=== PATIENT | female | born 1965 | race Caucasian/White ===

== ENCOUNTER 2016-10-12 22:21 | Emergency (ER) | payer OTHER ==
[~2016-10-12] VITALS: Ht 162.6 cm; Wt 47.7 kg
[~2016-10-12 22:21] MED LIST: AZITHROMYCIN250 MG PO; NOHOMEMEDS; OMEPRAZOLE20 MG PO; THIAMINE HCL100 MG PO; TYLENOL WITH C1 EACH PO; ZANTAC150 MG PO; ZOFRAN ODT4 MG PO
[2016-10-12 23:40] LABS: MCH 36.6 PG (29.0-34.0); MCHC 35.9 G/DL (30.0-36.0); MCV 102.1 FL (83-99); MEAN PLAT.VOLUME 10.8 uM^3 (9.5-12.4); PLATELET COUNT 53 K/uL (156-360); RBC DIS.WIDTH-CV 13.1 % (11.8-14.6); RBC DIS.WIDTH-SD 48.9 % (39-53); RED BLOOD COUNT 3.33 M/uL (3.80-5.20); WHITE BLOOD COUNT 2.6 K/uL (4.1-10.2)
[2016-10-12 23:42] LABS: CARBON DIOXIDE (BICARBONATE) 23.8 MEQ/L (20-31)
[2016-10-12 23:55] LABS: CHLORIDE 101 mEq/L (99-109); POTASSIUM 3.6 mEq/L (3.7-5.4); SODIUM 138 mEq/L (136-147)
[2016-10-12 23:57] LABS: GLUCOSE 59 mg/dL (70-99)
[2016-10-12 23:58] LABS: ANION GAP 17 MEQ/L (2-14)
[2016-10-12 23:59] LABS: TOTAL BILIRUBIN 1.4 mg/dL (0.0-1.0)
[2016-10-13] LABS: SERUM ETHYL ALCOHOL 262 mg/dL
[2016-10-13 00:01] LABS: ALKALINE PHOSPHATASE 92 IU/L (3-129); GFR ESTIMATE (CALCULATED) > 59 mL/min/
[2016-10-13 00:02] LABS: UREA NITROGEN (BUN) 5 mg/dL (9-23)
[2016-10-13 00:04] LABS: LIPASE 107 U/L (1.0-51.0)
[2016-10-13 00:10] LABS: TROP-I INTERPRETATION NEGATIVE; TROPONIN-I < 0.01 ng/mL (0.0-0.30)
[2016-10-13 00:11] LABS: QUANTITATIVE HCG < 4.0 MIU/ML
[2016-10-13 01:13] LABS: ADD MIUA? YES; BILIRUBIN NEGATIVE; BLOOD SMALL; COLOR YELLOW ((YELLOW)); GLUCOSE (STRIP) NEGATIVE; KETONES 20; LEUKOCYTES SMALL; NITRITE POSITIVE; PROTEIN (STRIP) NEGATIVE; SPECIFIC GRAVITY 1.006 (1.000-1.030); UROBILINOGEN 0.2 MG/DL (0.2-1.0)
[2016-10-13 01:16] LABS: BACTERIA RARE /HPF; EPITHELIAL CELLS RARE /HPF; MUCUS TRACE /LPF; RED BLOOD CELLS 0-5 /HPF (0-5); UCUL ADDED? NO; WHITE BLOOD CELLS 0-5 /HPF (0-5)
[2016-10-13 01:21] LABS: AMPHETAMINE NEGATIVE (500 ng/mL); BARBITURATES NEGATIVE (200 ng/mL); BENZODIAZEPINES NEGATIVE (150 ng/mL); COCAINE NEGATIVE (150 ng/mL); INTERNAL CONTROLS VALID? YES; METHADONE NEGATIVE (200 ng/mL); METHAMPHETAMINE NEGATIVE (500 ng/mL); OPIATES (MORPHINE) NEGATIVE (100 ng/mL); OXYCODONE NEGATIVE (100 ng/mL); PHENCYCLIDINE NEGATIVE (25 ng/mL); PROPOXYPHENE NEGATIVE (300 ng/mL); THC CANNABINOIDS NEGATIVE (50 ng/mL); TRICYCLIC ANTIDEPRESSANTS NEGATIVE (300 ng/mL)
[2016-10-13] MEDS ORDERED: THIAMINE HCL100 MG PO (01:49)
[2016-10-13] MEDS ORDERED: MACRODANTIN100 MG PO (01:49)
[2016-10-13] MEDS ORDERED: LIBRIUM25 MG PO (01:49)
[2016-10-13 03:13] VITALS: BP 118/83
== END 2016-10-13 03:20 | disposition home or self-care (01) ==
LOC: EME 22:21
PROVIDERS: Emergency Medicine
DX: F10.229 Alcohol dependence with intoxication, unspecified (principal); N30.01 Acute cystitis with hematuria; R79.89 Other specified abnormal findings of blood chemistry; D72.819 Decreased white blood cell count, unspecified; D69.6 Thrombocytopenia, unspecified; R06.00 Dyspnea, unspecified; S00.11XA Contusion of right eyelid and periocular area, initial encounter; S80.01XA Contusion of right knee, initial encounter; S80.02XA Contusion of left knee, initial encounter; W19.XXXA Unspecified fall, initial encounter; Y90.8 Blood alcohol level of 240 mg/100 ml or more; F17.200 Nicotine dependence, unspecified, uncomplicated
CPT/HCPCS: 70450; 71010; 80053; 81003; 82140; 82803; 83690; 84484; 84702; 85027; 93005; 99281; 99284; G0480; J2060; J7030

== ENCOUNTER 2016-10-16 23:55 | Emergency (ER) | payer OTHER ==
[~2016-10-16] VITALS: Ht 162.6 cm; Wt 60.2 kg
[~2016-10-16 23:55] MED LIST changes: +LIBRIUM25 MG PO; +MACRODANTIN100 MG PO
[2016-10-17 01:29] LABS: EOSINOPHIL (%) 2.7 % (0-5); EOSINOPHIL COUNT 0.1 K/uL (0-0.3); HEMATOCRIT 36.6 % (36.0-46.0); INSTRUMENT ABS NEUTROPHIL CT 0.9 K/uL; LYMPHOCYTE COUNT 1.4 K/uL (1.0-2.8); MCH 36.3 PG (29.0-34.0); MCV 103.7 FL (83-99); MEAN PLAT.VOLUME 11.8 uM^3 (9.5-12.4); MONOCYTE COUNT 0.2 K/uL (0-0.8); NEUTROPHIL (%) 34.9 % (45-76); NEUTROPHIL COUNT 0.9 K/uL (1.8-6.4); PLATELET COUNT 56 K/uL (156-360); RBC DIS.WIDTH-SD 49.7 % (39-53); RED BLOOD COUNT 3.53 M/uL (3.80-5.20); WHITE BLOOD COUNT 2.6 K/uL (4.1-10.2)
[2016-10-17 01:39] LABS: CHLORIDE 103 mEq/L (99-109); POTASSIUM 3.2 mEq/L (3.7-5.4); SODIUM 143 mEq/L (136-147)
[2016-10-17 01:40] LABS: MAGNESIUM 1.7 mg/dL (1.3-2.7)
[2016-10-17 01:42] LABS: GLUCOSE 93 mg/dL (70-99)
[2016-10-17 01:43] LABS: ANION GAP 13 MEQ/L (2-14); D-DIMER ELISA 0.95 mg/L FEU (< 0.57); INTER. NORMALIZED RATIO 1.1; PROTHROMBIN TIME 11.5 (9.2-11.2); PTT 27.9 (25-32)
[2016-10-17 01:45] LABS: ALKALINE PHOSPHATASE 100 IU/L (3-129); SERUM ETHYL ALCOHOL 243 mg/dL; TOTAL BILIRUBIN 1.1 mg/dL (0.0-1.0)
[2016-10-17 01:46] LABS: GFR ESTIMATE (CALCULATED) > 59 mL/min/
[2016-10-17 01:47] LABS: UREA NITROGEN (BUN) 3 mg/dL (9-23)
[2016-10-17 01:49] LABS: LIPASE 146 U/L (1.0-51.0)
[2016-10-17 01:55] LABS: QUANTITATIVE HCG < 4.0 MIU/ML
[2016-10-17 04:06] LABS: ADD MIUA? YES; BILIRUBIN NEGATIVE; BLOOD NEGATIVE; COLOR YELLOW ((YELLOW)); GLUCOSE (STRIP) NEGATIVE; KETONES NEGATIVE; LEUKOCYTES SMALL; NITRITE POSITIVE; PROTEIN (STRIP) NEGATIVE; SPECIFIC GRAVITY 1.024 (1.000-1.030); UROBILINOGEN 0.2 MG/DL (0.2-1.0)
[2016-10-17 04:14] LABS: BACTERIA NONE SEEN /HPF; EPITHELIAL CELLS NONE SEEN /HPF; MUCUS NONE SEEN /LPF; RED BLOOD CELLS 0-5 /HPF (0-5); UCUL ADDED? NO
[2016-10-17] MEDS ORDERED: PROTONIX40 MG PO (05:38)
[2016-10-17] MEDS ORDERED: LIBRIUM25 MG PO (05:38)
[2016-10-17] MEDS ORDERED: ZOFRAN ODT4 MG PO (05:38)
[2016-10-17] MEDS ORDERED: MACROBID100 MG PO (05:39)
[2016-10-17 05:46] VITALS: BP 133/91
== END 2016-10-17 05:57 | disposition home or self-care (01) ==
LOC: EME → EDBD 23:55 → EME 23:55
PROVIDERS: Emergency Medicine
DX: F10.10 Alcohol abuse, uncomplicated (principal); R53.1 Weakness; K62.5 Hemorrhage of anus and rectum; N39.0 Urinary tract infection, site not specified; D69.6 Thrombocytopenia, unspecified; Y90.8 Blood alcohol level of 240 mg/100 ml or more; F17.200 Nicotine dependence, unspecified, uncomplicated
CPT/HCPCS: 71020; 71275; 80053; 81003; 83690; 83735; 84702; 85025; 85379; 85610; 85730; 93005; 99281; 99285; G0480; J3411; J3475; J7030

== ENCOUNTER 2017-02-16 23:55 | Inpatient (IN) | payer OTHER ==
[~2017-02-16] VITALS: Ht 162.6 cm; Wt 57.8 kg
[~2017-02-16 23:55] MED LIST changes: +MACROBID100 MG PO; +PROTONIX40 MG PO
[2017-02-17 00:38] LABS: HEMATOCRIT 31.2 % (36.0-46.0); MCH 39.1 PG (29.0-34.0); MCHC 36.9 G/DL (30.0-36.0); MCV 106.1 FL (83-99); MEAN PLAT.VOLUME 12.1 uM^3 (9.5-12.4); NRBC (%) 0.3 /100 WBC (0-0); PLATELET COUNT 89 K/uL (156-360); RBC DIS.WIDTH-CV 16.6 % (11.8-14.6); RBC DIS.WIDTH-SD 63.5 % (39-53); RED BLOOD COUNT 2.94 M/uL (3.80-5.20)
[2017-02-17 00:45] LABS: INTER. NORMALIZED RATIO 1.2; PROTHROMBIN TIME 13.8 SEC (10.2-12.9)
[2017-02-17 00:48] LABS: PTT 37.8 SEC (25-37)
[2017-02-17 00:48] LABS: ADD MIUA? YES; BILIRUBIN MODERATE; BLOOD NEGATIVE; COLOR AMBER ((YELLOW)); GLUCOSE (STRIP) NEGATIVE; KETONES NEGATIVE; LEUKOCYTES NEGATIVE; NITRITE POSITIVE; PROTEIN (STRIP) NEGATIVE; SPECIFIC GRAVITY 1.005 (1.000-1.030)
[2017-02-17 00:53] LABS: CHLORIDE 92 mEq/L (99-109); POTASSIUM 2.7 mEq/L (3.7-5.4); SODIUM 134 mEq/L (136-147)
[2017-02-17 00:53] LABS: BACTERIA 3+ /HPF; EPITHELIAL CELLS RARE /HPF; MUCUS TRACE /LPF; RED BLOOD CELLS 0-5 /HPF (0-5); UCUL ADDED? YES; WHITE BLOOD CELLS NONE SEEN /HPF (0-5)
[2017-02-17] MEDS ORDERED: WOMEN'S DAILY1 EAC2 PO (00:54)
[2017-02-17 00:55] LABS: GLUCOSE 141 mg/dL (70-99)
[2017-02-17 00:56] LABS: ANION GAP 15 MEQ/L (2-14)
[2017-02-17 00:57] LABS: TOTAL BILIRUBIN 18.1 mg/dL (0.0-1.0)
[2017-02-17 00:58] LABS: SERUM ETHYL ALCOHOL 352 mg/dL
[2017-02-17 00:59] LABS: ALKALINE PHOSPHATASE 159 IU/L (3-129); GFR ESTIMATE (CALCULATED) > 59 mL/min/
[2017-02-17 01:00] LABS: UREA NITROGEN (BUN) 3 mg/dL (9-23)
[2017-02-17 01:02] LABS: LIPASE 85 U/L (1.0-51.0)
[2017-02-17 01:04] LABS: TROP-I INTERPRETATION NEGATIVE; TROPONIN-I < 0.01 ng/mL (0.0-0.30)
[2017-02-17 01:30] LABS: ICTOTEST POSITIVE
[2017-02-17 04:37] VITALS: BP 121/70
[2017-02-17 05:14] LABS: MAGNESIUM 1.1 mg/dL (1.3-2.7)
[2017-02-17 05:42] LABS: HEMATOCRIT 31.3 % (36.0-46.0); MCV 109.1 FL (83-99)
[2017-02-17 08:13] VITALS: BP 117/74
[2017-02-17 09:29] LABS: ANION GAP 15 MEQ/L (2-14); CHLORIDE 102 MEQ/L (99-109); GFR ESTIMATE (CALCULATED) > 59 mL/min/; GLUCOSE 128 mg/dL (70-99); MAGNESIUM 2.4 mg/dl (1.3-2.7); POTASSIUM 3.1 MEQ/L (3.7-5.4); SAMPLE HEMOLYSIS CHECK 0; SAMPLE ICTERIC CHECK 3; SAMPLE LIPEMIA CHECK 0; SODIUM 138 MEQ/L (136-147); UREA NITROGEN (BUN) 2 mg/dL (9-23)
[2017-02-17 11:08] VITALS: BP 106/60
[2017-02-17 16:18] VITALS: BP 108/65
[2017-02-17 16:20] LABS: HEMATOCRIT 24.6 % (36.0-46.0); MCV 111.8 FL (83-99)
[2017-02-17 19:00] VITALS: BP 135/70
[2017-02-17 23:00] VITALS: BP 130/74
[2017-02-18] VITALS (10 sets, daily range): BP systolic 111–139; BP diastolic 65–78
[2017-02-18 00:41] LABS: HEMATOCRIT 26.2 % (36.0-46.0); MCV 110.5 FL (83-99)
[2017-02-18 06:32] LABS: HEMATOCRIT 23.8 % (36.0-46.0); IMMATURE GRANULOCYTE (%) 1.3 % (0.0-0.7); IMMATURE GRANULOCYTE COUNT 0.1 K/uL; INSTRUMENT ABS NEUTROPHIL CT 2.8 K/uL; LYMPHOCYTE COUNT 0.6 K/uL (1.0-2.8); MCH 39.2 PG (29.0-34.0); MCHC 34.9 G/DL (30.0-36.0); MCV 112.3 FL (83-99); MONOCYTE (%) 8.6 % (3-12); MONOCYTE COUNT 0.3 K/uL (0-0.8); NEUTROPHIL (%) 73.7 % (45-76); NEUTROPHIL COUNT 2.8 K/uL (1.8-6.4); NRBC (%) 0.5 /100 WBC (0-0); RBC DIS.WIDTH-SD 69.2 % (39-53); WHITE BLOOD COUNT 3.8 K/uL (4.1-10.2)
[2017-02-18 06:36] LABS: INTER. NORMALIZED RATIO 1.3; PROTHROMBIN TIME 14.6 SEC (10.2-12.9)
[2017-02-18 06:51] LABS: RED BLOOD COUNT 2.12 M/uL (3.80-5.20)
[2017-02-18 06:57] LABS: MEAN PLAT.VOLUME 11.4 uM^3 (9.5-12.4); PLAT.SUFFICIENCY DECREASED
[2017-02-18 07:01] LABS: ALKALINE PHOSPHATASE 116 IU/L (3-129); ANION GAP 11 MEQ/L (2-14); CHLORIDE 99 MEQ/L (99-109); GFR ESTIMATE (CALCULATED) > 59 mL/min/; GLUCOSE 163 mg/dL (70-99); IRON 137 MCG/DL (35-150); SAMPLE HEMOLYSIS CHECK 0; SAMPLE ICTERIC CHECK 3; SAMPLE LIPEMIA CHECK 0; SODIUM 134 MEQ/L (136-147); TOTAL BILIRUBIN 17.6 MG/DL (0.0-1.0); UREA NITROGEN (BUN) 3 mg/dL (9-23)
[2017-02-18 07:19] LABS: PLATELET COUNT 54 K/uL (156-360)
[2017-02-18 07:47] LABS: ALKALINE PHOSPHATASE 115 IU/L (3-129); ANION GAP 12 MEQ/L (2-14); CHLORIDE 100 MEQ/L (99-109); GFR ESTIMATE (CALCULATED) > 59 mL/min/; GLUCOSE 155 mg/dL (70-99); SODIUM 136 MEQ/L (136-147); TOTAL BILIRUBIN 18.1 MG/DL (0.0-1.0); UREA NITROGEN (BUN) 3 mg/dL (9-23)
[2017-02-18 07:53] LABS: DIRECT BILIRUBIN 13.6 mg/dL (0.0-0.3)
[2017-02-18 17:27] LABS: HEMATOCRIT 28.7 % (36.0-46.0); MCV 106.7 FL (83-99)
[2017-02-18 20:59] LABS: HEMATOCRIT 31.1 % (36.0-46.0); MCV 108.4 FL (83-99)
[2017-02-19 02:44] VITALS: BP 114/73
[2017-02-19 06:29] LABS: HEMATOCRIT 29.6 % (36.0-46.0); MCH 36.5 PG (29.0-34.0); MCHC 34.1 G/DL (30.0-36.0); MCV 106.9 FL (83-99); MEAN PLAT.VOLUME 12.4 uM^3 (9.5-12.4); PLATELET COUNT 58 K/uL (156-360); RBC DIS.WIDTH-CV 20.8 % (11.8-14.6); WHITE BLOOD COUNT 4.4 K/uL (4.1-10.2)
[2017-02-19 06:43] LABS: RED BLOOD COUNT 2.77 M/uL (3.80-5.20)
[2017-02-19 06:53] LABS: EOSINOPHIL (%) 1.4 % (0-5); EOSINOPHIL COUNT 0.1 K/uL (0-0.3); IMMATURE GRANULOCYTE (%) 1.1 % (0.0-0.7); IMMATURE GRANULOCYTE COUNT 0.1 K/uL; INSTRUMENT ABS NEUTROPHIL CT 3.3 K/uL; LYMPHOCYTE COUNT 0.8 K/uL (1.0-2.8); MONOCYTE (%) 6.1 % (3-12); MONOCYTE COUNT 0.3 K/uL (0-0.8); NEUTROPHIL (%) 73.5 % (45-76); NEUTROPHIL COUNT 3.3 K/uL (1.8-6.4)
[2017-02-19 07:15] LABS: ALKALINE PHOSPHATASE 112 IU/L (3-129); ANION GAP 10 MEQ/L (2-14); CHLORIDE 100 MEQ/L (99-109); GFR ESTIMATE (CALCULATED) > 59 mL/min/; GLUCOSE 99 mg/dL (70-99); POTASSIUM 3.2 MEQ/L (3.7-5.4); SAMPLE HEMOLYSIS CHECK 0; SAMPLE ICTERIC CHECK 3; SAMPLE LIPEMIA CHECK 0; SODIUM 135 MEQ/L (136-147); TOTAL BILIRUBIN 20.4 MG/DL (0.0-1.0); UREA NITROGEN (BUN) 2 mg/dL (9-23)
[2017-02-19 07:30] VITALS: BP 112/62
[2017-02-19 11:43] VITALS: BP 109/63
[2017-02-19 16:30] VITALS: BP 115/68
[2017-02-20 00:19] VITALS: BP 101/66
[2017-02-20 06:18] LABS: EOSINOPHIL (%) 0.8 % (0-5); HEMATOCRIT 30.6 % (36.0-46.0); IMMATURE GRANULOCYTE (%) 0.8 % (0.0-0.7); INSTRUMENT ABS NEUTROPHIL CT 3.5 K/uL; MCH 38.1 PG (29.0-34.0); MCV 108.9 FL (83-99); MEAN PLAT.VOLUME 12.3 uM^3 (9.5-12.4); MONOCYTE (%) 8.5 % (3-12); MONOCYTE COUNT 0.4 K/uL (0-0.8); NEUTROPHIL (%) 69.1 % (45-76); NEUTROPHIL COUNT 3.5 K/uL (1.8-6.4); NRBC (%) 0.4 /100 WBC (0-0); RBC DIS.WIDTH-CV 21.2 % (11.8-14.6); RBC DIS.WIDTH-SD 81.6 % (39-53); RED BLOOD COUNT 2.81 M/uL (3.80-5.20)
[2017-02-20 06:19] LABS: ALKALINE PHOSPHATASE 114 IU/L (3-129); ANION GAP 11 MEQ/L (2-14); CHLORIDE 103 MEQ/L (99-109); GFR ESTIMATE (CALCULATED) > 59 mL/min/; GLUCOSE 93 mg/dL (70-99); POTASSIUM 3.4 MEQ/L (3.7-5.4); SAMPLE HEMOLYSIS CHECK 0; SAMPLE ICTERIC CHECK 3; SAMPLE LIPEMIA CHECK 0; SODIUM 138 MEQ/L (136-147); TOTAL BILIRUBIN 21.7 MG/DL (0.0-1.0); UREA NITROGEN (BUN) 3 mg/dL (9-23)
[2017-02-20 06:20] LABS: PLATELET COUNT 81 K/uL (156-360)
[2017-02-20 07:30] VITALS: BP 113/63
[2017-02-20 09:26] LABS: INTER. NORMALIZED RATIO 1.5; PROTHROMBIN TIME 16.8 SEC (10.2-12.9)
[2017-02-20 11:33] VITALS: BP 122/79
[2017-02-20 13:48] LABS: ANTI-SMOOTH MUSCLE (Actin)+ <20 U (<20)
[2017-02-20 14:20] LABS: MITOCHONDRIAL (M2) ANTIBODIES+ <=20.0 U (<=20.0)
== END 2017-02-20 11:56 | disposition left against medical advice (07) | DRG 689 ==
LOC: EME → EDBD 23:55 → EME 23:55 → 5EAST 02-17 02:09 → EDOF 02-17 02:09 → ENRESERV 02-17 02:10 → 5EAST 02-17 04:28
PROVIDERS: Emergency Medicine; Hospitalist; Internal Medicine; Student in an Organized Health Care Education/Training Program
DX: N39.0 Urinary tract infection, site not specified (principal); K72.00 Acute and subacute hepatic failure without coma; I81 Portal vein thrombosis; D62 Acute posthemorrhagic anemia; F10.239 Alcohol dependence with withdrawal, unspecified; E87.2 Acidosis; F10.288 Alcohol dependence with other alcohol-induced disorder; K76.6 Portal hypertension; K92.1 Melena; B18.2 Chronic viral hepatitis C; K63.5 Polyp of colon; D12.2 Benign neoplasm of ascending colon; I10 Essential (primary) hypertension; F17.210 Nicotine dependence, cigarettes, uncomplicated; E87.6 Hypokalemia; K31.89 Other diseases of stomach and duodenum; K64.8 Other hemorrhoids; K70.11 Alcoholic hepatitis with ascites; K74.60 Unspecified cirrhosis of liver; K76.0 Fatty (change of) liver, not elsewhere classified; Y90.8 Blood alcohol level of 240 mg/100 ml or more; Z87.11 Personal history of peptic ulcer disease; Z81.1 Family history of alcohol abuse and dependence; Z88.5 Allergy status to narcotic agent; Z91.19 Patient's noncompliance with other medical treatment and regimen
CPT/HCPCS: 71010; 74177; 74183; 76705; 80048; 80048 91; 80053; 80076; 81003; 82140; 82728; 83516 90; 83540; 83605; 83690; 83735; 84100; 84466; 84484; 85014; 85018; 85025; 85027; 85610; 85730; 86038; 86256 90; 86850; 86900; 86901; 86920; 87040; 87077; 87086; 87186; 88305; 90686; 93005; 93306; 99281; 99285; C9113; G0480; J0610; J0692; J0696; J1885; J2060; J2250; J2354; J2405; J3411; J3475; J3480; J7030; J7040; J7050; J7512; P9016; S0028; S0030

== ENCOUNTER 2017-02-23 02:35 | Emergency (ER) | payer OTHER ==
[~2017-02-23] VITALS: Ht 162.6 cm; Wt 73.7 kg
[~2017-02-23 02:35] MED LIST changes: +WOMEN'S DAILY1 EAC2 PO
[2017-02-23 03:35] LABS: SODIUM 138 mEq/L (136-147)
[2017-02-23 03:37] LABS: EOSINOPHIL (%) 0.4 % (0-5); GLUCOSE 97 mg/dL (70-99); HEMATOCRIT 33.3 % (36.0-46.0); IMMATURE GRANULOCYTE (%) 0.6 % (0.0-0.7); INSTRUMENT ABS NEUTROPHIL CT 3.4 K/uL; LYMPHOCYTE COUNT 0.8 K/uL (1.0-2.8); MCHC 33.9 G/DL (30.0-36.0); MCV 109.2 FL (83-99); MEAN PLAT.VOLUME 11.4 uM^3 (9.5-12.4); MONOCYTE (%) 11.6 % (3-12); MONOCYTE COUNT 0.6 K/uL (0-0.8); NEUTROPHIL COUNT 3.4 K/uL (1.8-6.4); RBC DIS.WIDTH-CV 19.8 % (11.8-14.6); RBC DIS.WIDTH-SD 77.2 % (39-53); RED BLOOD COUNT 3.05 M/uL (3.80-5.20); WHITE BLOOD COUNT 4.8 K/uL (4.1-10.2)
[2017-02-23 03:38] LABS: ANION GAP 11 MEQ/L (2-14)
[2017-02-23 03:40] LABS: SERUM ETHYL ALCOHOL < 10 mg/dL
[2017-02-23 03:41] LABS: ALKALINE PHOSPHATASE 127 IU/L (3-129); GFR ESTIMATE (CALCULATED) > 59 mL/min/
[2017-02-23 03:42] LABS: PLATELET COUNT 117 K/uL (156-360); UREA NITROGEN (BUN) 4 mg/dL (9-23)
[2017-02-23 03:46] LABS: CHLORIDE 105 mEq/L (99-109); TOTAL BILIRUBIN 23.3 mg/dL (0.0-1.0)
[2017-02-23 05:11] LABS: LIPASE 21 U/L (1.0-51.0)
[2017-02-23] MEDS ORDERED: BENTYL20 MG PO (06:20)
[2017-02-23] MEDS ORDERED: COLACE100 MG PO (06:20)
[2017-02-23] MEDS ORDERED: PRILOSEC OTC20 MG PO (06:20)
[2017-02-23] MEDS ORDERED: LOPRESSOR25 MG PO (06:20)
[2017-02-23 06:37] VITALS: BP 103/72
== END 2017-02-23 06:38 | disposition home or self-care (01) ==
LOC: EME 02:35
PROVIDERS: Emergency Medicine
DX: R17 Unspecified jaundice (principal); K62.5 Hemorrhage of anus and rectum; E87.6 Hypokalemia; I10 Essential (primary) hypertension; F32.9 Major depressive disorder, single episode, unspecified; F41.9 Anxiety disorder, unspecified; F17.200 Nicotine dependence, unspecified, uncomplicated; Z86.73 Personal history of transient ischemic attack (TIA), and cerebral infarction without residual deficits; Z88.8 Allergy status to other drugs, medicaments and biological substances
CPT/HCPCS: 80053; 83690; 85025; 99281; 99284; G0480

== ENCOUNTER 2017-08-11 13:41 | Emergency (ER) | payer OTHER ==
[~2017-08-11] VITALS: Ht 162.6 cm; Wt 59.4 kg
[~2017-08-11 13:41] MED LIST changes: +B-1100 MG PO; +BENTYL20 MG PO; +COLACE100 MG PO; +FOLIC ACID1 MG PO; +FUROSEMIDE40 MG PO; +K-DUR20 MEQ PO; +LOPERAMIDE2 MG PO; +LOPRESSOR25 MG PO; +MAG-OXIDE400 MG PO; +NICOTINE PATCH1 EAC2 TD; +PENTOXIFYLLINE400 MG PO; +POLY-VITAMIN1 EACH PO; +PRILOSEC OTC20 MG PO; +SOMA350 MG PO; +SPIRONOLACTONE50 MG PO; +XIFAXAN550 MG PO
[2017-08-11 14:10] LABS: HEMOGLOBIN 14.4 G/DL (11.9-15.5); MCH 32.3 PG (29.0-34.0); MCHC 35.1 G/DL (30.0-36.0); MCV 91.9 FL (83-99); PLATELET COUNT 183 K/uL (156-360); RBC DIS.WIDTH-CV 12.9 % (11.8-14.6); RBC DIS.WIDTH-SD 43.1 % (39-53); RED BLOOD COUNT 4.46 M/uL (3.80-5.20); WHITE BLOOD COUNT 10.8 K/uL (4.1-10.2)
[2017-08-11 14:20] LABS: CHLORIDE 104 mEq/L (99-109); POTASSIUM 4.1 mEq/L (3.7-5.4); SODIUM 138 mEq/L (136-147)
[2017-08-11 14:22] LABS: GLUCOSE 139 mg/dL (70-99)
[2017-08-11 14:25] LABS: GFR ESTIMATE (CALCULATED) > 59 mL/min/
[2017-08-11 14:26] LABS: UREA NITROGEN (BUN) 13 mg/dL (9-23)
[2017-08-11 14:32] LABS: TROP-I INTERPRETATION NEGATIVE; TROPONIN-I 0.02 ng/mL (0.0-0.30)
[2017-08-11 16:06] LABS: ALBUMIN 4.6 g/dL (3.2-4.8)
[2017-08-11 16:09] LABS: TOTAL PROTEIN 8.6 g/dL (6.4-8.3)
[2017-08-11 16:12] LABS: ALKALINE PHOSPHATASE 91 IU/L (3-129)
[2017-08-11 16:14] LABS: AST (GOT) 21 IU/L (2-34); DIRECT BILIRUBIN 0.4 mg/dL (0.0-0.3)
[2017-08-11 16:15] LABS: ALT (GPT) 10 IU/L (3-49)
[2017-08-11 16:19] LABS: INTER. NORMALIZED RATIO 1.2
[2017-08-11 16:22] LABS: PTT 30.4 SEC (25-37)
[2017-08-11 17:35] LABS: APPEARANCE CLEAR ((CLEAR)); BILIRUBIN NEGATIVE; BLOOD NEGATIVE; COLOR STRAW ((YELLOW)); GLUCOSE (STRIP) NEGATIVE; KETONES NEGATIVE; LEUKOCYTES NEGATIVE; NITRITE NEGATIVE; PROTEIN (STRIP) NEGATIVE; SPECIFIC GRAVITY 1.006 (1.000-1.030); UCUL ADDED? NO; UROBILINOGEN 0.2 MG/DL (0.2-1.0)
[2017-08-11 18:01] VITALS: BP 128/89
== END 2017-08-11 18:26 | disposition home or self-care (01) ==
LOC: EME 13:41
PROVIDERS: Nurse Practitioner Family
DX: R00.2 Palpitations (principal); R53.1 Weakness; R53.83 Other fatigue; N39.0 Urinary tract infection, site not specified; Z86.73 Personal history of transient ischemic attack (TIA), and cerebral infarction without residual deficits; B19.20 Unspecified viral hepatitis C without hepatic coma; J44.9 Chronic obstructive pulmonary disease, unspecified; I10 Essential (primary) hypertension; F41.9 Anxiety disorder, unspecified; F32.9 Major depressive disorder, single episode, unspecified; F17.200 Nicotine dependence, unspecified, uncomplicated; Z88.8 Allergy status to other drugs, medicaments and biological substances
CPT/HCPCS: 70450; 71046; 80048; 80076; 81003; 82140; 84484; 85027; 85610; 85730; 93005; 99281; 99284; J7030